=== PATIENT | male | born 1955 | race Two or more races ===

== ENCOUNTER 2018-10-27 08:29 | Inpatient (IN) | payer OTHER ==
[~2018-10-27] VITALS: Ht 193 cm; Wt 112.5 kg
--- NOTE | 2018-10-27 08:38 | NUR ---
SENIOR ACCOUNTS PAYABLE SPECIALIST NOTE: RECEIVED THE PATIENT IN ROOM 109, AWAKE, ALERT AND VERBALLY RESPONSIVE. RESPIRATION EVEN AND UNLABORED SATURATING 96% IN ROOM AIR. PATIENT WAS ADMITTED UNDER MED-SURG STATUS. PATIENT CAME IN WITH HIS FOLRENTIN AND DAUGHTER. PATIENT WAS AMBULATORY WITH STEADY GAIT. INTRODUCED SELF. PATIENT WAS PLACED ON COMFORTABLE POSITION IN THE BED ON A SITTING POSITION. AFEBRILE. SKIN WARM TO TOUCH. COMPLETE BODY ASSESSMENT WAS DONE. INSERTED A (L) HAND 20G IV LINE WITH GOOD BLOOD RETURN AND ON SALINE LOCK. GATHERED INFORMATION FOR ADMISSION AND ALL INFORMATION WAS PROVIDED BY THE PATIENT. BED ALARMED AND LOCKED AT ALL TIMES. PATIENT WAS KEPT NPO FOR THE CERVICAL SURGERY SCHEDULED AT [address] MAGNOLIA HEWITT. VERIFIED WITH PATIENT IF HE HAS ANY CONCERNS OR QUESTIONS REGARDING THE PROCEDURE AND PATIENT DENIED IT. PER PATIENT, EVERYTHING WAS THOROUGHLY EXPLAINED BY DR. MAGNOLIA HEWITT TO HIM. CALL LIGHT WAS PLACED WITHIN REACH AND WAS EDUCATED TO USE IT EVERY TIME HE NEEDED SOME ASSISTANCE FROM THE STAFF. PATIENT UNDERSTOOD AND AGREED.
[2018-10-27 08:45] VITALS: BP 129/82
--- NOTE | 2018-10-27 09:21 | NUR ---
RN NOTE: PATIENT SIGNED THE INFORMED CONSENT FOR THE CERVICAL SURGERY INCLUDING THE BLOOD TRANSFUSION AND ANESTHESIA CONSENT. FILED TO THE PATIENT'S CHART.
[2018-10-27] MEDS ORDERED: ATOR40TA PO (09:54)
[2018-10-27] MEDS ORDERED: LABE200T5 PO (09:54)
[2018-10-27] MEDS ORDERED: HYDR-4076 PO (09:54)
[2018-10-27] MEDS ORDERED: AZIL80TA PO (09:54)
[2018-10-27] MEDS ORDERED: DOXA4TAB19 PO (09:55)
[2018-10-27] MEDS ORDERED: GELATIN SPONGE,ABSORBABLE 1 EA SPONGE TP ONE (10:04)
[2018-10-27] MEDS ORDERED: CEFAZOLIN 0 GM ONE (10:04)
[2018-10-27] MEDS ORDERED: HEMOSTATIC MATRIX 10 ML 1 EACH PAD MC ONE (10:04)
[2018-10-27] MEDS ORDERED: BACITRACIN 50000 UNITS/VIAL ONE (10:04)
[2018-10-27] MEDS ORDERED: HEPARIN SODIUM, PORCINE 5000 UNITS/1 ML VIAL ONE (10:19)
[2018-10-27] MEDS ORDERED: POLYMYXIN B SULFATE 500,000 UNITS VIAL IJ ONE (10:20)
[2018-10-27 10:21] LABS: CALCIUM, SERUM 9.2 mg/dL (8.5-10.1); CREATININE 0.7 mg/dL (0.6-1.3); POTASSIUM 3.7 mmol/L (3.5-5.1)
[2018-10-27] MEDS ORDERED: CELLULOSE,OXIDIZED 1 EACH EACH MC ONE (10:23)
[2018-10-27 10:28] LABS: ALBUMIN 4.4 g/dL (3.4-5.0); BILIRUBIN,TOTAL 0.4 mg/dL (0.2-1.0); TOTAL PROTEIN, SERUM 7.5 g/dL (6.4-8.2)
[2018-10-27] MEDS ORDERED: PROPOFOL 100 ML ONE ×2 (10:34→10:35)
[2018-10-27] MEDS ORDERED: HYDROMORPHONE INJ 2 MG/ML DISP.SYRIN ONE ×2 (10:34→14:32)
[2018-10-27] MEDS ORDERED: ROCURONIUM BROMIDE 50 MG/5 ML ONE ×2 (10:34→11:32)
[2018-10-27] MEDS ORDERED: MIDAZOLAM HCL 2 MG/2ML VIAL ONE (10:34)
--- NOTE | 2018-10-27 10:35 | NUR ---
RN NOTE: PATIENT WAS TRANSFERRED TO THE OPERATING ROOM IN PREPARATION FOR THE PLANNED CERVICAL SURGERY. PATIENT WAS GIVEN INSTRUCTION THAT HE WILL RECEIVE THE ANTIBIOTIC ANCEF IN OPERATING ROOM.
[2018-10-27] MEDS ORDERED: THROMBIN (BOVINE) 20,000 UNITS SPRAY KIT TP ONE (11:57)
[2018-10-27] MEDS ORDERED: THROMBIN (BOVINE) 5,000 UNITS VIAL TP ONE (11:57)
[2018-10-27] MEDS ORDERED: DEXAMETHASONE SOD PHOSPHATE 4 MG/ML VIAL ONE (12:14)
[2018-10-27 14:00] LABS: APPEARANCE,URINE CLEAR (CLEAR); BILIRUBIN,URINE NEGATIVE (NEGATIVE); BLOOD, URINE NEGATIVE Ery/uL (NEGATIVE); COLOR,URINE YELLOW (YELLOW); KETONES,URINE NEGATIVE (NEGATIVE); LEUKOCYTE ESTERASE ,URINE NEGATIVE (NEGATIVE); NITRITE, URINE NEGATIVE (NEGATIVE); PH,URINE 5.5 (5.0-8.0); PROTEIN,URINE NEGATIVE (NEGATIVE); UGLUCOSE NEGATIVE (NEGATIVE); UROBILINOGEN,URINE 0.2 EU/dL (0.2)
[2018-10-27] MEDS ORDERED: DOCUSATE SODIUM 100 MG CAPSULE PO PRN (14:30)
--- NOTE | 2018-10-27 15:20 | NUR ---
RN NOTE: PATIENT WAS RETURNED TO THE UNIT FROM PACU. PATIENT WAS AWAKE, ALERT AND VERBALLY RESPONSIVE. PATIENT WAS NOTED WITH A NECK COLLAR IN PLACED WITH HEMOVAC ON THE (R) ANTERIOR (L) SIDE OF THE NECK. DRESSING WAS NOTED CLEAN AND INTACT. NO BLEEDING NOTED ON THE SITE. SCD WAS IN PLACED. POST-OP ORDERS WERE RECEIVED FROM DR. MAGNOLIA HEWITT (SURGEON). KAYODE MORALES RN WAS HELPING TO PAGE DR. GARAY (PAIN MANAGEMENT) FOR THE MARKETING PR INTERN ORDER FOR PAIN MANAGEMENT. PATIENT'S FLORENTIN AND DAUGHTER WAS PRESENT AT THE BEDSIDE.
[2018-10-27] MEDS: IV D5/0.45 NACL 1,000 ML IV PRN (15:43)
[2018-10-27 16:00] VITALS: BP 114/70
[2018-10-27] MEDS ORDERED: METHOCARBAMOL (500MG) 500 MG TABLET PO SCH (16:00)
[2018-10-27] MEDS ORDERED: NALOXONE HCL 0.4 MG/ML AMPUL IV PRN (16:30)
[2018-10-27] MEDS ORDERED: HYDROMORPHONE MDV 30 MG in IV NS 0.9% 15 ML, PCA TOTAL VOLUME 1 BAG IV PRN ×3 (16:30)
[2018-10-27] MEDS ORDERED: oxyCODONE/APAP (5/325 MG) 1 UDTAB TABLET PO PRN (16:30)
[2018-10-27] MEDS ORDERED: KEY,NONCONTROL,TO KEEP IN PYXI 1 EA MC ONE (16:47)
--- NOTE | 2018-10-27 17:27 | NUR ---
RN NOTE: PATIENT WAS STARTED WITH DILAUDID VALIDATION ENGINEER PUMP PER PATIENT'S DEMAND. PATIENT WAS EDUCATED ON HOW TO USE THE VALIDATION ENGINEER PUMP WITH THE PRESENCE OF HIS DAUGHTER AND .
--- NOTE | 2018-10-27 19:10 | NUR ---
RN NOTE: BEDSIDE REPORT WAS GIVEN TO PM SHIFT NURSE FOR CONTINUITY OF CARE. PATIENT REMAINED AWAKE, ALERT AND VERBALLY RESPONSIVE AND CURRENTLY RECEIVING A DILAUDID CLOTH BLEACHING RANGE TENDER PER PATIENT DEMAND. PATIENT VERBALIZED THAT HIS PAIN WAS WELL MANAGED BY THE CURRENT PAIN MEDICATION. PATIENT RECEIVED 3 DOSES OF 0.2MG DILAUDID VIA CLOTH BLEACHING RANGE TENDER WITH 4 ATTEMPTS BASED ON THE CLOTH BLEACHING RANGE TENDER HISTORY. 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
--- NOTE | 2018-10-27 19:30 | NUR ---
TD RN RCD PT S/P C4-C5, C5-C6, C6-C7 ANTERIOR CERVICAL DISCECTOMY AND FUSION WITH INSTRUMENTATION AND ILIAC CREST ASPIRATION. PT IS A/O x4. MIN PAIN WITH EMERGENCY VETERINARY ASSISTANT DILAUDID 0.2 MG/10/; EDUCATED PT ON EMERGENCY VETERINARY ASSISTANT USAGE AND PT VERBALIZES UNDERSTANDING. NSR ON MONITOR. ON O2 2L NC W/CLEAR LUNG SOUNDS.
[2018-10-27 20:00] VITALS: BP_SYST 114; BP_SYST 138; BP_DIAS 70; BP_DIAS 83
--- NOTE | 2018-10-27 20:15 | NUR ---
TD RN PT DECLINED ROBAXIN; STATES IT MAKES HIM TOO DROWSY.
[2018-10-27] MEDS: METHOCARBAMOL (500MG) 500 MG TABLET PO SCH (20:17)
[2018-10-27] MEDS: ANCEF 1 GM/50 ML D5W IV SCH ×2 (20:20)
--- NOTE | 2018-10-27 21:51 | NUR ---
TD RN PT SLEEPING AT THIS TIME. NO DISTRESS NOTED.
[2018-10-27] MEDS ORDERED: ZOLPIDEM TARTRATE 5 MG TABLET PO PRN (22:00)
[2018-10-28] VITALS: BP 113/88
[2018-10-28] MEDS: ONDANSETRON HCL/PF 4 MG/2 ML VIAL IVP PRN ×3 (02:21→20:03)
[2018-10-28] MEDS: IV D5/0.45 NACL 1,000 ML IV PRN ×2 (03:12→18:47)
[2018-10-28] MEDS: ANCEF 1 GM/50 ML D5W IV SCH ×6 (03:20→20:04)
[2018-10-28 04:00] VITALS: BP_SYST 139; BP_DIAS 73; BP_DIAS 75
[2018-10-28] MEDS: oxyCODONE/APAP (5/325 MG) 1 UDTAB TABLET PO PRN ×3 (04:08→20:03)
--- NOTE | 2018-10-28 04:48 | NUR ---
RN NOTE PATIENT STATED THAT HE DOES NOT WANT TO USE GRAIN WEIGHER PUMP, PER PATIENT " IT GIVES ME WEIRD FEELING", CALLED DR GAARY AT [phone] TO DISCONTINUE ORDER, AWAITING FOR CALL BACK
[2018-10-28] MEDS: METHOCARBAMOL (500MG) 500 MG TABLET PO SCH ×3 (05:00→21:00)
[2018-10-28] MEDS ORDERED: KEY,NONCONTROL,TO KEEP IN PYXI 1 EA MC ONE ×2 (05:02→07:45)
--- NOTE | 2018-10-28 07:05 | NUR ---
RN NOTE SPOKE TO NICOLE SAUCEDO TO DISCONTINUE WOOD CABINET FINISHER PUMP PER PATIENT REQUEST
--- NOTE | 2018-10-28 07:26 | NUR ---
RN NOTE PATIENT'S TREE TRIMMING LINE TECHNICIAN PUMP WAS NOT CLEARED BY PREVIOUS NURSE, NOTIFIED JANAE SANITATION OFFICER, PER JANAE SANITATION OFFICER, PUT IN YOUR COMMENTS AND TALK TO PHARMACY
[2018-10-28 07:30] LABS: BASOPHILS % (AUTO) 0.4 % (0.0-2.0); EOSINOPHILS % (AUTO) 0.5 % (0.0-6.0); HEMATOCRIT 39 % (39-51); HEMOGLOBIN 13.4 g/dL (13.5-17.5); LYMPHOCYTES # (AUTO) 1.3 /CMM (0.8-4.8); LYMPHOCYTES % (AUTO) 16.4 % (20.0-44.0); MEAN CORPUSCULAR HGB CONC 35 g/dl (31.0-36.0); MEAN CORPUSCULAR VOLUME 91 fL (80-96); MONOCYTES # (AUTO) 0.8 /CMM (0.1-1.30); MONOCYTES % (AUTO) 9.3 % (2.0-12.0); NEUTROPHILS % (AUTO) 73.4 % (43.0-81.0); PLATELET COUNT (AUTO) 168 /CMM (150-450); RED BLOOD CELL COUNT(AUTO) 4.24 MIL/uL (4.5-6.0); WHITE BLOOD COUNT (AUTO) 8.1 K/uL (4.3-11.0)
--- NOTE | 2018-10-28 07:30 | NUR ---
RN NOTES RECEIVED PATIENT OUT OF BED AND AMBULATING. A/A/0 X4, ABLE TO MAKE NEEDS KNOWN. ON ROOM AIR, BREATHING UNLABORED AND SATING FINE. PATIENT WITH CERVICAL COLLAR IN PLACE. NECK PAIN ON SCALE OF 5/10, PATIENT REFUSED PAIN MEDICATION AT THIS TIME WHEN OFFERED. SINUS RHYTHM ON THE MONITOR. IV LINE ON THE L HAND 20G AND R WRIST G 18: BOTH IN PLACE AND INTACT, FLUSHING WELL. WITH ONGOING IVF OF D5NS AT 100CC/HR. PATIENT ENCOURAGE TO CALL FOR HELP AND ASSISTANCE, TO VERBALIZE FEELINGS AND CONCERNS. SAFETY MEASURES OBSERVED AND MAINTAINED. CALL LIGHT PLACED WITHIN REACH, WILL CONTINUE TO MONITOR AND ANTICIPATE NEEDS
[2018-10-28 07:46] LABS: CREATININE 0.5 mg/dL (0.6-1.3); MAGNESIUM 1.9 mg/dL (1.8-2.4); POTASSIUM 3.5 mmol/L (3.5-5.1)
[2018-10-28 08:00] VITALS: BP_SYST 103; BP_SYST 133; BP_DIAS 51; BP_DIAS 68
--- NOTE | 2018-10-28 10:00 | NUR ---
CLARE NOTES INFORMED Carrie PRIETO DNP THAT PATIENT HAS REQUESTED TO STAY ANOTHER DAY IN THE HOSPITAL Addendum: 10/28/18 at 1937 by BG VILCHIS RN AND IF HE COULD CHECK AND SO THE MED. RECON
--- NOTE | 2018-10-28 10:00 | NUR ---
RN NOTES ASKED RODRIGUEZ LEE REGARDING BONE STIMULATOR PER THE LATER ITS NOT AVAILABLE IN THE HOSPITAL. INFORMED MARQUES (EYELET CUTTER) REGARDING BONE STIMULATOR, PER LATER SHE WILL FOLLOW WITH MEDICAL SUPPLY
[2018-10-28] MEDS ORDERED: DOCUSATE SODIUM 100 MG CAPSULE PO PRN (14:00)
[2018-10-28] MEDS: ACETAMINOPHEN 325 MG TABLET PO PRN (14:05)
[2018-10-28 16:00] VITALS: BP_SYST 101; BP_SYST 131; BP_DIAS 44; BP_DIAS 73
--- NOTE | 2018-10-28 19:30 | NUR ---
RN NOTES ENDORSED PATIENT FOR CONTINUITY OF CARE. NOT ON ANY FORM OF DISTRESS. ALL NURSING NEEDS ATTENDED AND MET. SAFETY MEASURES OBSERVED AND MAINTAINED. CALL LIGHT WITHIN REACH
[2018-10-28 20:00] VITALS: BP 109/69
[2018-10-29 04:00] VITALS: BP 112/65
[2018-10-29] MEDS: ANCEF 1 GM/50 ML D5W IV SCH ×2 (04:04)
[2018-10-29] MEDS: METHOCARBAMOL (500MG) 500 MG TABLET PO SCH (04:05)
[2018-10-29] MEDS: oxyCODONE/APAP (5/325 MG) 1 UDTAB TABLET PO PRN (04:05)
[2018-10-29] MEDS: ONDANSETRON HCL/PF 4 MG/2 ML VIAL IVP PRN (04:06)
--- NOTE | 2018-10-29 07:33 | NUR ---
MS RN NOTE RECEIVED PATIENT IN BED, ALERT,ORIENTED X3 NO SOB NOTED, ON RA ,, RT WRIST HL INTACT ON IVF ORDERED, NECK DRESSING INTACT, NO S\S BLEEDING NOTED,[place] DRAIN IN PLCE WITH SMALL AMT OF BLOODY DRAINAGE NOTED , NO C\O PAIN AT THIS TIME , BED IN LOWEST AND LOCKED POSITION, CALL LIGHT WITHIN REACH, PLAN OF CARE DISCUSSED WITH PATIENT, WILL CONT TO MONITOR CLOSELY
[2018-10-29] MEDS: IV D5/0.45 NACL 1,000 ML IV PRN (07:59)
[2018-10-29 08:00] VITALS: BP 116/71
[2018-10-29] MEDS: ACETAMINOPHEN 325 MG TABLET PO PRN (08:45)
--- NOTE | 2018-10-29 08:47 | NUR ---
MS RN NOTE DENISSE RN HUMAN RESOURCES ADMINISTRATOR AT BEDSIDE, [place] DRAIN REMOVED BY HIM ,DRY DRESSING APPLIED WITH POSSIBLE DISCHARGE HOME
--- NOTE | 2018-10-29 11:27 | NUR ---
MS RN NOTE PATIENT DISCHARGE HOME ORDERED BY DENISSE RN TALENT DEVELOPMENT CONSULTANT , DISCHARGE INSTRUCTION GIVEN TO PATIENT AND EXPLAINED HOW TO TAKE NEW PX AND HOME MEDS WITH POSSIBLE SIDE EFFECTS , ALSO INSTRUCTED TO FOLLOW UP WITH DR MACHADO AND PRIMARY CARE DOCTOR NEXT WEEK, KEEP NECK COLLAR TILL SEE DR MACHADO ,BELONGING SIGNED, HL ON RT WRIST REMOVED ,NO BLEEDING NO S\S INFECTION NOTED , AT BEDSIDE, PATIENT WENT TO LOBBY WITH FAMILY AND STAFF WITH STABLE CONDITION ,
== END 2018-10-29 14:12 | disposition home or self-care (01) | DRG 30 ==
LOC: DS 08:29 → MEDSG1 08:30 → TELE-TD 15:26 → MEDSG1 10-28 09:20
PROVIDERS: ADMIT Nurse Practitioner Acute Care; ATTEND Nurse Practitioner Acute Care
PROC: 01N10ZZ Release Cervical Nerve, Open Approach (ICD-10-PCS; principal; 2018-10-27)
PROC: 0RB30ZZ Excision of Cervical Vertebral Disc, Open Approach (ICD-10-PCS; principal; 2018-10-27)
PROC: 0RG20A0 Fusion of 2 or more Cervical Vertebral Joints with Interbody Fusion Device, Anterior Approach, Anterior Column, Open Approach (ICD-10-PCS; principal; 2018-10-27)
PROC: 07DR0ZZ Extraction of Iliac Bone Marrow, Open Approach (ICD-10-PCS; 2018-10-27)
DX: M54.12 Radiculopathy, cervical region (principal); E78.5 Hyperlipidemia, unspecified; I10 Essential (primary) hypertension; M19.90 Unspecified osteoarthritis, unspecified site; G89.29 Other chronic pain; N40.0 Benign prostatic hyperplasia without lower urinary tract symptoms; Z90.49 Acquired absence of other specified parts of digestive tract; Z98.890 Other specified postprocedural states; Z79.899 Other long term (current) drug therapy; M54.2 Cervicalgia; M48.00 Spinal stenosis, site unspecified
CPT/HCPCS: 36415; 72040-TC; 80048-TC; 80053-TC; 81000-TC; 83735-TC; 85025-TC; 85730-TC; 86850-TC; 87081-TC; 94799-TC; 97116-TC; 97530-TC; A4216; G0378; J0360; J0690; J1100; J1170; J1644; J2250; J2370; J2405; J2704; J2710; J3490; J7060